=== PATIENT | male | born 1995 | race Hispanic/Latino ===

== ENCOUNTER 2020-05-06 20:51 | Emergency (ER) | payer MEDICAID, OTHER ==
[2020-05-06] MEDS ORDERED: AMOXICILLIN 500 MG CAPSULE PO ONE (21:19)
[2020-05-06] MEDS ORDERED: ACETAMINOPHEN EXTRA STRENGTH 500 MG TABLET ONE (21:25)
== END 2020-05-06 22:12 | disposition home or self-care (01) ==
LOC: EDH 20:51
DX: H65.92 Unspecified nonsuppurative otitis media, left ear (principal); Z20.828 Contact with and (suspected) exposure to other viral communicable diseases; R11.0 Nausea; Z72.0 Tobacco use
CPT/HCPCS: 87426